=== PATIENT | male | born 1930 | race Caucasian/White ===

== ENCOUNTER 2016-12-02 17:45 | Emergency (ER) | payer MEDICARE ==
[~2016-12-02] VITALS: Ht 162.6 cm; Wt 59.1 kg
[2016-12-02 17:51] VITALS: BP 96/54; PULSE 90; RESP 18; O2SAT 92
--- NOTE | 2016-12-02 18:42 | ED.REPORT ---
HPI-Facial Injury Date of Service Dec 02, 2016 ED Provider: Dr. Carvalho Pt is an 85 year old male with a hx of dementia presenting to the ED from [facility] after falling out of his wheelchair as he was reaching for something. The pt presents with bruising to his left hand and forearm and left forehead. His family reports that he was reaching for something that was not there, and that he has been hallucinating for the past few months. This was his second fall in the last little while. He was started on antibiotics for a UTI 1 week ago. Nursing Notes Stated Complaint: FELL HIT HEAD Chief Complaint: Head, Face, Neck Trauma Nursing Notes Reviewed: Yes Allergies: Coded Allergies: No Known Allergies (Unverified , 12/02/16) Scheduled Cephalexin (Keflex) 500 Mg Capsule 500 MG PO TID General Time Seen by Provider: 18:44 Chief Complaint Other (Ground level fall) Hx Obtained From: Spouse, Daughter Arrived By: Wheelchair Onset Occurred: Just prior to arrival Symptom Duration: Since onset Progression Since Onset: Unchanged Location: : Forehead Recent Healthcare: Recent doctor visit Similar Sx Previous: Yes Past Medical History Past Medical History Dementia Past Surgical History denies Smoking History Unknown if Ever Smoker Social History Alcohol Use: Denies alcohol use Drug Use: Denies drug use Ambulatory Status Wheelchair Review of Systems Unable to Obtain ROS Mental status Physical Exam Initial Vital Signs Vital Signs (First) Date Time Temp Pulse Resp B/P Pulse Ox O2 Delivery O2 Flow Rate FiO2 12/02/16 17:51 36.9 90 18 96/54 92 Room Air Initial VS: Reviewed, Vital signs abnormal Respiratory: Breath sounds normal, Clear to auscultation, No respiratory distress Cardiovascular: Regular rate & rhythm, Heart sounds normal, Intact distal pulses Abdomen / GI: Soft, Non-tender, No guarding, No rebound, No distention Extremities: Vascular intact, Neuro intact, No swelling, No tenderness Psychiatric: Mood/affect normal, Behavior normal, Normal thought content Head / Eyes: Normocephalic, PERRL, EOMI ENT: Atraumatic, Airway patent Neck: Atraumatic, Supple, No meningismus, Full range of motion Neurologic: Speech NL, No motor deficits, No sensory deficits, CN II - XII intact, Reflexes equal bilat Skin: No rash Skin tear left lateral elbow. Right great toe had dry gangrene to tip, was cool, pale and non tender. He has a black ulcer with surrounding white tissue to right lateral ankle about 1 cm with surrounding swelling and ecchymosis. He also has a skin tear above left eye, no hematoma. Interpretation & Diagnostics Lab Results Interpretation Result Diagram: 12/02/16 18512/02/16 185 Test 12/02/16 18:52 12/02/16 21:12 White Blood Count 11.3th/mm3 (3.8-10.1) Red Blood Count 2.06mil/mm3 (4.40-5.80) Hemoglobin 9.3g/dL (13.8-17.2) Hematocrit 26.8% (41.0-50.0) Mean Corpuscular Volume 130.1fL (81-100) Mean Corpuscular Hemoglobin 45.1pg (27.0-35.0) Mean Corpuscular Hemoglobin Concent 34.7% (32.0-37.0) Red Cell Distribution Width 16.0% (12.3-15.4) Platelet Count 324bil/L (150-400) Neutrophils (%) (Auto) 77.4% (40-74) Lymphocytes (%) (Auto) 9.1% (14-46) Monocytes (%) (Auto) 12.6% (4-12) Eosinophils (%) (Auto) 0.2% (0-5) Basophils (%) (Auto) 0% (0-3) Hold Purple Top Tube Received (Received) Hold Blue Top Tube Received (Received) Sodium Level 137mEq/L (134-144) Potassium Level 5.2mEq/L (3.5-5.2) Chloride Level 101mEq/L (97-108) Carbon Dioxide Level 24mmol/L (18-29) Blood Urea Nitrogen 49mg/dL (8-27) Creatinine 2.34mg/dL (0.76-1.27) Estimat Glomerular Filtration Rate 28mL/min (>59) Glucose Level 130mg/dL (60-99) Calcium Level 9.9mg/dL (8.5-10.1) Hold Jenkins Top Tube Received (Received) Urine Color Yellow (YELLOW) Urine Appearance Clear (CLEAR,HAZY) Urine pH 6.5 (5.0-8.0) Urine Specific [place] 1.015 (1.003-1.035) Urine Protein 30mg/dL (NEG,TRACE) Urine Glucose (UA) Negativemg/dL (NEGATIVE) Urine Ketones Negativemg/dL (NEGATIVE) Urine Occult Blood Negative (NEGATIVE) Urine Nitrite Negative (NEGATIVE) Urine Bilirubin Negative (NEGATIVE) Urine Urobilinogen Normalmg/dL (NORMAL) Urine Leukocyte Esterase Negative (NEGATIVE) Urine RBC 0-2/hpf (0-2) Urine WBC 0-5/hpf (0-5) Urine Epithelial Cells Occasional/hpf (NONE-MOD) Urine Crystals None seen (NONE SEEN) Urine Bacteria None/hpf (NONE-FEW) Urine Hyaline Casts Occasional/lpf (NONE) Urine Granular Casts None seen (NONE SEEN) Urine Waxy Casts None seen (NONE SEEN) Urine Red Blood Cell Casts None seen (NONE SEEN) Urine White Blood Cell Casts None seen (NONE SEEN) Urine Mucus None seen (None Seen) Urine Trichomonas None seen (NONE SEEN) Urine Yeast None (NONE SEEN) Urinalysis Comment None Urine Culture Reflexed Not indicated CT Head Interpretation IMPRESSION: Motion degraded examination. No acute intracranial abnormality. Dictated by: Edgard Rush M.D. on 12/02/2016 at 18:40 Study: Head CT no contrast Interpretation / Wet Read by: Interpret - Radiologist Re-Eval/Medical Decision Med Decision/Clinical Course The patient has severe dementia and has been hallucinating for the past couple months, his physician thinks it's related to his dementia. He was also recently treated for urinary tract infection and finished his antibiotics 1 or 2 days ago. From his fall he has multiple skin tears were cleaned and dressed. He is also noted to have 2 ulcers to his right lower extremity they look related to peripheral vascular disease. According to the family his right leg is chronically swollen although he does have some new erythema so he was started on antibiotics. I spoke with Dr. Kelly, and the patient can be seen in wound care clinic. He appears to have dry gangrene to his great toe, he does not have any pain. He also has an ulcer to his right ankle that needs to be debrided. Re-Evaluation/Progress #1: Time of Eval: 20:05 Patient Status: Condition improved Re-Evaluation/Progress Note: Updated on lab and CT results. Re-Evaluation/Progress #2: Time of Eval: 21:56 Patient Status: Condition improved Re-Evaluation/Progress Note: Rechecked the ulcers on right lower extremity. Discussed plan for discharge and follow up with wound care. Pt and family understand and agree. The pt's family states that his lower leg is more red than normal, but the swelling is chronic. Will start on Keflex. Consultation : Referral / Consult Name: Fabiano Olson DPM Call Returned at: 18:58 Acrobatic Dancer: Will see in office, Agrees with plan Note: Podiatry. They will call the pt on Monday. Counseled Regarding: Diagnosis, Lab results, Need for follow-up, When/why to return to ED Discharge & Departure Impression: Primary Impression: Fall from wheelchair Encounter type: initial encounter Qualified Code: W05.0XXA - Fall from non- moving wheelchair, initial encounter Additional Impressions: Multiple skin tears Ischemic ulcer of ankle Laterality: right Non-pressure ulcer stage: unspecified non-pressure ulcer stage Qualified Code: L97.319 - Non-pressure chronic ulcer of right ankle with unspecified severity Ischemic ulcer of toe Laterality: right Non-pressure ulcer stage: unspecified non-pressure ulcer stage Qualified Code: L97.519 - Non-pressure chronic ulcer of other part of right foot with unspecified severity Cellulitis Site of cellulitis: extremity Site of cellulitis of extremity: lower extremity Laterality: right Qualified Code: L03.115 - Cellulitis of right lower limb Renal insufficiency Skin tear of left elbow without complication Encounter type: initial encounter Qualified Code: S51.012A - Laceration without foreign body of left elbow, initial encounter Disposition: Home Discharge Condition All VS Reviewed: Yes Condition: Improved Patient Instructions: Chronic Wound Care (ED), Fall Prevention (ED) Additional Instructions: The CT scan of his head was negative, it did not show any signs of bleeding or other injury. Wound care ([phone]) will call on Monday to set up an appointment for later that day to follow up on his foot ulcers. Apply antibiotic ointment to the wounds and change the dressing daily. Give Keflex as prescribed. Return to the ER if he develops any new or worsening symptoms. Referrals: Marline Galeano MD Scribe Attestation Portions of this note were transcribed by Jaqueline Navarro. I, Dr. Carvalho personally performed the history, physical exam and medical decision-making; I reviewed and confirmed the accuracy of the information in the transcribed note. Signed by : Tyler Faulkner, 12/02/2016. copies to: Marline Galeano MD, Jena M MD Dec 02, 2016 18:42 JAQUELINE NAVARRO Dec 02, 2016 18:50
--- NOTE | 2016-12-02 18:44 | DRSVH ---
PROCEDURE: CT BRAIN WITHOUT CONTRAST ([id number]) INDICATIONS: fell out WC, on asa daily TECHNIQUE: Noncontrast 4.5 mm thick angled axial sections acquired from the foramen magnum to the vertex, with c oronal reformats. COMPARISON: None. FINDINGS: Image quality: Motion degraded examination. CSF spaces: Basal cisterns are patent. No extra-axial fluid collections. The ventricles are symmet jose luis in size and shape. Brain: No intracranial bleeds or masses. There is cerebral volume loss for age, with resultant vent ricular and sulcal prominence. There are periventricular and deep white matter chronic small vessel ischemic changes. There is intracranial internal carotid artery atherosclerosis. Skull and face: Calvarium and visualized facial bones appear intact, without suspicious lesions. Sinuses: Visualized sinuses and mastoids are clear. IMPRESSION: Motion degraded examination. No acute intracranial abnormality. Dictated by: Edgard Rush M.D. on 12/02/2016 at 18:40 Approved by: Edgard Rush M.D. on 12/02/2016 at 18:42
[2016-12-02] MEDS ORDERED: 0.9% Sodium Chloride 500 ML IV ONE (19:00)
[2016-12-02 19:07] LABS: BASOPHILS % (AUTO) 0 % (0-3); EOSINOPHILS % (AUTO) 0.2 % (0-5); MONOCYTES % (AUTO) 12.6 % (4-12); Mean Corpuscular Hemoglobin 45.1 pg (27.0-35.0); Mean Corpuscular Volume 130.1 fL (81-100); NEUTROPHILS % (AUTO) 77.4 % (40-74); Platelet Count 324 bil/L (150-400)
[2016-12-02] MEDS ORDERED: 0.9% Sodium Chloride 250 ML IV ONE (20:10)
[2016-12-02 21:40] LABS: COLOR,URINE YELLOW (YELLOW)
[2016-12-02 21:41] LABS: APPEARANCE,URINE CLEAR (CLEAR,HAZY); OCCULT BLOOD,URINE NEGATIVE (NEGATIVE); PH,URINE 6.5 (5.0-8.0); UROBILINOGEN,URINE NORMAL (NORMAL)
[2016-12-02] MEDS ORDERED: CEPH-512 PO (22:04)
[2016-12-02 22:05] VITALS: BP 118/57; PULSE 84; RESP 18; O2SAT 99
[2016-12-02 23:19] VITALS: BP 141/65; PULSE 89; RESP 20; O2SAT 98
== END 2016-12-02 23:31 | disposition home or self-care (01) ==
LOC: SED 17:45
DX: S90.01XA Contusion of right ankle, initial encounter (principal); S50.12XA Contusion of left forearm, initial encounter; W05.0XXA Fall from non-moving wheelchair, initial encounter; Y92.129 Unspecified place in nursing home as the place of occurrence of the external cause; Y93.89 Activity, other specified; Y99.8 Other external cause status; N28.9 Disorder of kidney and ureter, unspecified; L03.115 Cellulitis of right lower limb; R44.3 Hallucinations, unspecified; F03.90 Unspecified dementia, unspecified severity, without behavioral disturbance, psychotic disturbance, mood disturbance, and anxiety; Z87.440 Personal history of urinary (tract) infections